=== PATIENT | female | born 1940 | race Caucasian/White ===

== ENCOUNTER 2022-12-31 15:11 | Emergency (ER) | payer MEDICARE ==
[2022-12-31 15:31] VITALS: BP 149/71; O2SAT 95
[2022-12-31] MEDS ORDERED: TETANUS/DIPHTHERIA/PERTUSSIS 0.5 ML SYRINGE IM ONE (15:44)
[2022-12-31] MEDS ORDERED: LIDOCAINE-EPINEPH-TETRACAINE 3 ML SYRINGE TOP STA (15:44)
--- NOTE | 2022-12-31 16:46 | CT Report ---
PROCEDURE: HEAD WO INDICATIONS: fall, head injury TECHNIQUE: Noncontrast 4.5 mm thick angled axial sections acquired from the foramen magnum to the vertex. For r adiation dose reduction, the following was used: automated exposure control, adjustment of mA and/or kV according to patient size. COMPARISON: None. FINDINGS: Image quality: Excellent. CSF spaces: Basal cisterns are patent. No extra-axial fluid collections. Ventricles are normal in size and shape. Brain: No midline shift. No intracranial masses or hemorrhage. Mahmood-white matter interface is norm al. Age-related volume loss and age appropriate mild small vessel ischemic change. Intracranial carot id calcifications. Skull and face: Calvarium and visualized facial bones are intact, without suspicious lesions. Sinuses: Visualized sinuses and mastoids are clear. IMPRESSION: No acute intracranial process. Reviewed by: Willian Benavides MD on 12/31/2022 4:44 PM PDT Approved by: Willian Benavides MD on 12/31/2022 4:44 PM PDT Station ID: [id number]
--- NOTE | 2022-12-31 17:14 | ED Physician Documentation ---
History of Present Illness - Stated complaint Stated Complaint: GLF,PUNCTURED WOUND - Chief complaint Chief Complaint: Trauma Hd/Nk - History obtained from History obtained from: Patient - History of Present Illness Timing: Today Pain level max: 4 Pain level now: 3 - Additonal information Additional information: 82-year-old female presents to the emergency department stating that she fell earlier this morning around 9 AM. She tripped at the outside of the home she is staying at. Fell and struck her head on the pavement. She also suffered a small laceration to the anterior aspect of the left knee. She states that this has continued to bleed. Patient does take Eliquis. No loss of consciousness. No vomiting. Also has mild pain to her bilateral palms of her hands. Has been using the hand freely throughout the day. Unknown last tetanus shot. She states that she came in because she could not get the wound to stop bleeding. No neck or back pain. Review of Systems Constitutional: denies: Fever, Chills GI: denies: Vomiting, Diarrhea Musculoskeletal: denies: Neck pain, Back pain Neurologic: reports: Head injury. denies: Focal weakness, Numbness, Syncope, Seizure, Headache, LOC PD PAST MEDICAL HISTORY - Past Medical History Past Medical History: Yes Cardiovascular: Hypertension - Allergies Allergies/Adverse Reactions: Allergies Allergy/AdvReac Type Severity Reaction Status Date / Time No Known Drug Allergies Allergy Verified 12/31/22 15:26 - Social History Does the pt have substance abuse?: No - Family History Family history: reports: Non contributory - Immunizations Immunizations are current?: No Immunizations: TDAP >10years/unknown PD ED PE NORMAL - Vitals Vital signs reviewed: Yes - General General: Alert and oriented X 3, No acute distress - HEENT HEENT: Atraumatic (No scalp hematomas. No palpable skull fractures.), PERRL - Neck Neck: Supple, no meningeal sign, No bony TTP - Cardiac Cardiac: RRR - Respiratory Respiratory: No respiratory distress, Clear bilaterally - Abdomen Abdomen: Soft, Non tender, Non distended - Derm Derm: Warm and dry - Extremities Extremities: Other (L knee - 0.5 cm laceration, subcutaneous. Neurovascular intact. No bony tenderness. No debris.) - Neuro Neuro: Alert and oriented X 3 - Psych Psych: Normal mood, Normal affect Results - Vitals Vitals: Vital Signs - 24 hr 08/24/23 15:22 Temperature 37 C Heart Rate 76 Respiratory 16 Rate Blood Pressure 149/71 H O2 Saturation 95 Oxygen O2 Source Room air - Rads (name of study) Head CT Relevant Findings:: Final report received, See rad report Procedures - Laceration (location) L knee Length in cm: 0.5 Wound type: Linear, Into subcut fat, Clean Neurovascular status: Sensory intact, Motor intact, Vascular intact Anesthesia: LET Wound preparation: Irrigated copiously NS, Wound explored, To the base Skin layer closure: Junior (2) Other: Patient tolerated well, No complications, Neurovascular intact, Dressing applied, Tetanus booster given PD Medical Decision Making - ED course Complexity details: reviewed results, re-evaluated patient, considered differential, d/w patient, d/w family ED course: No acute findings on head CT. Laceration was repaired with junior. Tolerated well. No indication for emergent imaging. No indication for antibiotics. The wound was irrigated with approximately 1 L of normal saline. No other acute injuries. Patient counseled regarding signs and symptoms for which I believe and urgent re-evaluation would be necessary. Patient with good understanding of and agreement to plan and is comfortable going home at this time This document was made in part using voice recognition software. While efforts are made to proofread this document, sound alike and grammatical errors may occur. Departure - Departure Disposition: 01 Home, Self Care Clinical Impression: Closed head injury Qualifiers: Encounter type: initial encounter Qualified Code(s): S09.90XA - Unspecified injury of head, initial encounter Knee laceration Qualifiers: Encounter type: initial encounter Laterality: left Qualified Code(s): S81.012A - Laceration without foreign body, left knee, initial encounter Condition: Good Instructions: ED Head Injury Closed, ED Laceration Ext Sutr Stap Tape Follow-Up: Your,doctor in 10 to 14 days [Other] Comments: Please follow-up with your doctor in approximately 10 to 14 days for staple removal. Your CT does not show any acute abnormalities today. Continue your current medications at home. Return if you notice redness, swelling or drainage from the wound. Forms: PCP List Discharge Date/Time: 12/31/22 17:34
== END 2022-12-31 17:34 | disposition home or self-care (01) ==
LOC: ED 15:11
DX: S09.90XA Unspecified injury of head, initial encounter (principal); S81.012A Laceration without foreign body, left knee, initial encounter; W01.0XXA Fall on same level from slipping, tripping and stumbling without subsequent striking against object, initial encounter; Y92.096 Garden or yard of other non-institutional residence as the place of occurrence of the external cause; I10 Essential (primary) hypertension; Z79.01 Long term (current) use of anticoagulants; Z23 Encounter for immunization
CPT/HCPCS: 12001; 90471; 99283; 99284